=== PATIENT | female | born 1995 | race Two or more races ===

== ENCOUNTER 2023-09-26 03:29 | Emergency (ER) | payer OTHER ==
[~2023-09-26] VITALS: Ht 157.5 cm; Wt 61.2 kg
[2023-09-26] MEDS ORDERED: RINGERS SOLUTION,LACTATED 1,000 ML IV STA (05:52)
[2023-09-26] MEDS ORDERED: FLUMAZENIL 0.5 MG/5 ML ML IV STA (05:53)
[2023-09-26] MEDS ORDERED: NALOXONE HCL 0.4 MG/ML AMPUL IV STA (05:53)
[2023-09-26] MEDS ORDERED: FLUMAZENIL 0.5 MG/5 ML ML IV ONE (06:00)
[2023-09-26] MEDS ORDERED: NALOXONE HCL 0.4 MG/ML AMPUL ONE (06:00)
[2023-09-26 07:30] LABS: ALBUMIN 3.5 gm/dL (3.4-5.0); BILIRUBIN TOTAL 0.55 mg/dL (0.3-1.2); CALCIUM 7.9 mg/dL (8.5-10.1); CREATININE SERUM 0.48 mg/dL (0.55-1.02); GFR 155.14; GLOBULINA 3.2 G/DL (2.4-3.5); POTASSIUM 3.77 mEq/L (3.5-5.1); TOTAL PROTEIN 6.7 gm/dL (6.4-8.2)
[2023-09-26 07:45] LABS: HEMATOCRIT 36.5 % (36.0-45.00); HEMOGLOBIN 12.9 g/dL (12.0-15.00); MEAN CORPUSCULAR HEMOGLOBIN 33.3 pg (27.00-32.0); MEAN CORPUSCULAR HGB CONC 35.4 g/dl (32.0-36.0); PLATELET COUNT 328 K/uL (150-450); RED BLOOD COUNT 3.89 M/uL (4.00-6.00); RED CELL DISTRIBUTION WIDTH 12.5 % (11.5-14.5)
[2023-09-26 10:27] LABS: COCAINE NEGATIVE (NEGATIVE); METHADONE NEGATIVE (NEGATIVE); OPIATES NEGATIVE (NEGATIVE); THC ( Cannabinoids) NEGATIVE (NEGATIVE)
== END 2023-09-26 13:10 | disposition home or self-care (01) ==
LOC: ER 03:29
DX: F10.10 Alcohol abuse, uncomplicated (principal); R56.9 Unspecified convulsions